=== PATIENT | female | born 1940 | race Caucasian/White ===

== ENCOUNTER 2017-12-20 14:26 | Emergency (ER) | payer OTHER, MEDICARE ==
[~2017-12-20] VITALS: Ht 162.5 cm; Wt 81.6 kg
[~2017-12-20 14:26] MED LIST: ASPIRIN ADULT L81 M2 PO; DAYPRO600 M1 PO; NKHM
[2017-12-20] MEDS ORDERED: NORCO 5-325 TA1 EACH PO (17:08)
== END 2017-12-20 18:00 | disposition home or self-care (01) ==
LOC: ED 14:26
DX: S01.511A Laceration without foreign body of lip, initial encounter (principal); S01.21XA Laceration without foreign body of nose, initial encounter; M12.811 Other specific arthropathies, not elsewhere classified, right shoulder; R51 Headache; M79.645 Pain in left finger(s); W22.8XXA Striking against or struck by other objects, initial encounter; Y93.89 Activity, other specified; Y92.89 Other specified places as the place of occurrence of the external cause; Y99.8 Other external cause status

== ENCOUNTER → 2018-07-09 | Outpatient (CLI) | payer MEDICARE ==
[~2018-07-09] MED LIST changes: +NORCO 5-325 TA1 EACH PO
== END | disposition home or self-care (01) ==
LOC: US 11:30
DX: I73.9 Peripheral vascular disease, unspecified (principal); I83.893 Varicose veins of bilateral lower extremities with other complications; L03.115 Cellulitis of right lower limb; M79.604 Pain in right leg; R60.0 Localized edema

== ENCOUNTER 2020-09-02 08:46 | Observation (INO) | payer MEDICARE ==
[2020-09-02] VITALS (14 sets, daily range): BP systolic 121–166; BP diastolic 36–90
[~2020-09-02] VITALS: Ht 162.5 cm; Wt 79.9 kg
[2020-09-03] VITALS: BP 128/59
[2020-09-03 07:02] LABS: BASO % 0.3 % (0.0-1.0); EOS # 0.2 10*3/uL (0.0-0.4); HEMATOCRIT 34.3 % (37.0-47.0); LYMPH # 1.3 10*3/uL (1.3-4.4); LYMPH % 21.3 % (27.0-41.0); MEAN CELL VOLUME 99.1 fl (81.0-99.0); MEAN CORPUSCULAR HGB 32.7 pg (27.0-31.0); MEAN CORPUSCULAR HGB CONC 32.9 g/dl (33.0-37.0); MEAN PLATELET VOLUME 10.4 fl (9.6-12.3); MONO # 0.5 10*3/uL (0.1-1.0); MONO % 8.4 % (3.0-9.0); NEUT # 4.1 10*3/uL (2.3-7.9); NEUT % 66.8 % (47.0-73.0); PLATELET COUNT AUTOMATED 175 10*3/uL (130-400); RED BLOOD COUNT 3.46 10*6/uL (4.10-5.10); RED CELL DISTRI WIDTH 12.3 % (0-14.5); WHITE BLOOD COUNT 6.1 10*3/uL (4.8-10.8)
[2020-09-03 07:15] LABS: BUN 21 mg/dl (7-24); CHLORIDE 109 mmol/L (98-107); CREATININE 0.92 mg/dL (0.55-1.02); POTASSIUM 3.8 mmol/L (3.5-5.1); SODIUM 140 mmol/L (136-145)
[2020-09-03 08:00] VITALS: BP 138/93
[2020-09-03] MEDS ORDERED: OXYBUTYNIN10 MG PO (10:04)
[2020-09-03 12:00] VITALS: BP 136/86
[2020-09-03 15:32] VITALS: BP 102/77
[2020-09-03 16:00] VITALS: BP 113/55
== END 2020-09-03 17:27 | disposition home or self-care (01) ==
LOC: ED 08:46 → 5E 11:35 → EDHOLD 11:35 → 5E 13:40
PROVIDERS: ADMIT Internal Medicine; ATTEND Internal Medicine
DX: S46.001A Unspecified injury of muscle(s) and tendon(s) of the rotator cuff of right shoulder, initial encounter (principal); S43.015A Anterior dislocation of left humerus, initial encounter; M12.811 Other specific arthropathies, not elsewhere classified, right shoulder; E66.9 Obesity, unspecified; W00.0XXA Fall on same level due to ice and snow, initial encounter; Y93.89 Activity, other specified; Y92.89 Other specified places as the place of occurrence of the external cause; Y99.8 Other external cause status; Z68.30 Body mass index [BMI] 30.0-30.9, adult

== ENCOUNTER → 2022-04-02 | Outpatient (CLI) | payer MEDICARE ==
[~2022-04-02] MED LIST changes: +OXYBUTYNIN10 MG PO
== END | disposition home or self-care (01) ==
LOC: MRI 04:31
PROVIDERS: ATTEND Internal Medicine
DX: I67.82 Cerebral ischemia (principal); F03.90 Unspecified dementia, unspecified severity, without behavioral disturbance, psychotic disturbance, mood disturbance, and anxiety

== ENCOUNTER 2024-07-21 00:19 | Emergency (ER) | payer MEDICARE ==
[~2024-07-21 00:19] MED LIST changes: +ARICEPT23MG PO; +CEFUROXIME AXE500 MG PO; +CITALOPRAM10 MG PO; +DONEPEZIL HCL10 MG PO; +KLOR-CON M1010 ME1 PO; +LASIX20 MG PO; +MELATONIN10 M4 PO; +NAMENDA-5 PO; +TRAZODONE50 MG PO; +VITAMIN D250 MCG PO
[2024-07-21] MEDS ORDERED: HYDROXYZINE PAM50 MG PO (01:45)
[2024-07-21] MEDS ORDERED: ACETAMINOPHEN 325 MG TAB PO ONE (03:20)
[2024-07-21] MEDS ORDERED: LIDOCAINE HCL/EPINEPHRINE 50 ML VIAL ONE (03:36)
[2024-07-21] MEDS ORDERED: DERMABOND 1 EA APPL T ONE (05:31)
[2024-07-21] MEDS ORDERED: Bacitracin Zinc 14 GM TUBE T ONE (05:50)
== END 2024-07-21 07:08 | disposition home or self-care (01) ==
LOC: ED 00:19
DX: S01.81XA Laceration without foreign body of other part of head, initial encounter (principal); S81.012A Laceration without foreign body, left knee, initial encounter; F03.90 Unspecified dementia, unspecified severity, without behavioral disturbance, psychotic disturbance, mood disturbance, and anxiety; F32.A Depression, unspecified; Z90.49 Acquired absence of other specified parts of digestive tract; Z98.890 Other specified postprocedural states; W01.10XA Fall on same level from slipping, tripping and stumbling with subsequent striking against unspecified object, initial encounter; Y93.89 Activity, other specified; Y92.121 Bathroom in nursing home as the place of occurrence of the external cause; Y99.8 Other external cause status

== ENCOUNTER 2025-04-26 15:46 | Inpatient (IN) | payer MEDICARE, OTHER ==
[~2025-04-26] VITALS: Ht 170.1 cm; Wt 89.9 kg
[~2025-04-26 15:46] MED LIST changes: +HYDROXYZINE PAM50 MG PO
[2025-04-26 15:49] VITALS: BP 131/80
[2025-04-26] MEDS ORDERED: Ondansetron Hydrochloride 4 MG/2 ML VIAL IV ONE ×2 (16:00→17:15)
[2025-04-26 16:37] LABS: BASO # 0.0 10*3/uL (0.0-0.1); BASO % 0.4 % (0.0-1.0); EOS # 0.2 10*3/uL (0.0-0.4); EOS % 2.1 % (1.0-4.0); MEAN CELL VOLUME 94.3 fl (81.0-99.0); MEAN CORPUSCULAR HGB 31.0 pg (27.0-31.0); MEAN PLATELET VOLUME 10.3 fl (9.6-12.3); MONO # 0.5 10*3/uL (0.1-1.0); MONO % 5.9 % (3.0-9.0); NEUT # 6.0 10*3/uL (2.3-7.9); NEUT % 65.4 % (47.0-73.0); NUCLEATED RED BLOOD CELL 0.0 % (0.0-0.0); NUCLEATED RED BLOOD CELL 0.0 10*3/uL (0.0-0.0); PLATELET COUNT AUTOMATED 274 10*3/uL (130-400); RED CELL DISTRI WIDTH 13.6 % (0-14.5)
[2025-04-26] MEDS ORDERED: HYDROmorphONE Hydrochloride 0.5 MG/0.5 ML SYRINGE IV ONE (17:15)
[2025-04-26 17:21] LABS: ACT PARTIAL THROMBO TIME 24.2 SECONDS (20.0-32.1)
[2025-04-26 17:29] LABS: BUN 22.0 mg/dl (9-23)
[2025-04-26 20:11] LABS: BILIRUBIN Negative (Negative); BLOOD Negative (Negative); CLARITY Clear (Clear); COLOR Yellow (Yellow); KETONE Negative (Negative); LEUKO ESTERASE Negative (Negative); NITRITE Negative (Negative); PH 5.5 (4.5-8.0); SPECIFIC GRAVITY 1.020 (1.001-1.030); UROBILINOGEN 0.2 E.U./dl (0.0-1.0)
[2025-04-26 20:19] LABS: BACTERIA TRACE
[2025-04-26] MEDS ORDERED: Ondansetron Hydrochloride 4 MG/2 ML VIAL IV PRN (21:15)
[2025-04-26] MEDS ORDERED: HYDROmorphONE Hydrochloride 0.5 MG/0.5 ML SYRINGE IV PRN (21:15)
[2025-04-26 21:45] VITALS: BP 132/84
[2025-04-26] MEDS ORDERED: SODIUM CHLORIDE 0.9% 1,000 ML IV SCH (22:20)
[2025-04-27] VITALS (11 sets, daily range): BP systolic 98–132; BP diastolic 41–73
[2025-04-27 06:04] LABS: BUN 24.0 mg/dl (9-23); SGPT/ALT 22.0 U/L (5-49)
[2025-04-27 06:15] LABS: BASO # 0.0 10*3/uL (0.0-0.1); BASO % 0.2 % (0.0-1.0); EOS # 0.0 10*3/uL (0.0-0.4); EOS % 0.0 % (1.0-4.0); MEAN CELL VOLUME 94.4 fl (81.0-99.0); MEAN CORPUSCULAR HGB 30.9 pg (27.0-31.0); MEAN PLATELET VOLUME 10.1 fl (9.6-12.3); MONO # 0.7 10*3/uL (0.1-1.0); MONO % 7.3 % (3.0-9.0); NEUT # 7.6 10*3/uL (2.3-7.9); NEUT % 83.0 % (47.0-73.0); NUCLEATED RED BLOOD CELL 0.0 % (0.0-0.0); NUCLEATED RED BLOOD CELL 0.0 10*3/uL (0.0-0.0); PLATELET COUNT AUTOMATED 226 10*3/uL (130-400); RED CELL DISTRI WIDTH 13.2 % (0-14.5)
[2025-04-27] MEDS ORDERED: Lactated Ringer's Solution 1,000 ML IV ONE (07:30)
[2025-04-27] MEDS ORDERED: ACETAMINOPHEN 100 ML IV ONE (07:30)
[2025-04-27] MEDS ORDERED: Ropivacaine Hydrochloride 5 MG/ML 20 ML AMP IJ ONE (08:13)
[2025-04-27] MEDS ORDERED: Bupivacaine Hydrochloride/Ep2 30 ML VIAL ONE (08:23)
[2025-04-27] MEDS ORDERED: ceFAZolin sodium/sodium chlor 20 ML IV ONE ×2 (08:33→09:00)
[2025-04-27] MEDS ORDERED: TRANEXAMIC ACID IN NACL,ISO-OS 100 ML IV ONE ×2 (08:34→09:00)
[2025-04-27] MEDS ORDERED: Cholecalciferol 2,000 UNIT TABLET (50 MCG) PO SCH (10:00)
[2025-04-27] MEDS ORDERED: HYDROmorphONE Hydrochloride 0.5 MG/0.5 ML SYRINGE IV SCH (10:30)
[2025-04-27] MEDS ORDERED: HYDROmorphONE Hydrochloride 0.5 MG/0.5 ML SYRINGE ONE (10:41)
[2025-04-27] MEDS ORDERED: PROPOFOL 200 MG/20 ML VIAL IV ONE (13:42)
[2025-04-27] MEDS ORDERED: Dexamethasone Sodium Phospha 4 MG/ML VIAL IV ONE (13:42)
[2025-04-27] MEDS ORDERED: ePHEDrine Sulfate 25 MG/5 ML SYRINGE IV ONE (13:42)
[2025-04-27] MEDS ORDERED: Midazolam Hydrochloride 2 MG/2 ML VIAL IV ONE (13:42)
[2025-04-27] MEDS ORDERED: Ondansetron Hydrochloride 4 MG/2 ML VIAL IV ONE (13:42)
[2025-04-27] MEDS ORDERED: SEVOFLURANE 250 ML BOT INH ONE (13:42)
[2025-04-27] MEDS ORDERED: ROCURONIUM BROMIDE 50 MG/5 ML SYRINGE IV ONE (13:42)
[2025-04-27] MEDS ORDERED: Lidocaine Hydrochloride 5 ML VIAL IV ONE (13:42)
[2025-04-27] MEDS ORDERED: ceFAZolin sodium 1 GM in SYRINGE INFUSION 10 ML IV SCH (14:00)
[2025-04-27] MEDS ORDERED: Acetaminophen/Oxycodone 5 MG/325 MG TABLET PO PRN (15:30)
[2025-04-27] MEDS ORDERED: NYSTATIN 15 GM BOT T SCH (22:00)
[2025-04-28 06:01] LABS: BUN 31.0 mg/dl (9-23)
[2025-04-28 06:11] LABS: BASO # 0.0 10*3/uL (0.0-0.1); BASO % 0.1 % (0.0-1.0); EOS # 0.0 10*3/uL (0.0-0.4); EOS % 0.0 % (1.0-4.0); MEAN CELL VOLUME 94.6 fl (81.0-99.0); MEAN CORPUSCULAR HGB 31.3 pg (27.0-31.0); MEAN PLATELET VOLUME 10.5 fl (9.6-12.3); MONO # 0.9 10*3/uL (0.1-1.0); MONO % 9.4 % (3.0-9.0); NEUT # 7.3 10*3/uL (2.3-7.9); NEUT % 79.1 % (47.0-73.0); NUCLEATED RED BLOOD CELL 0.0 % (0.0-0.0); NUCLEATED RED BLOOD CELL 0.0 10*3/uL (0.0-0.0); PLATELET COUNT AUTOMATED 176 10*3/uL (130-400); RED CELL DISTRI WIDTH 13.8 % (0-14.5)
[2025-04-28 08:00] VITALS: BP 91/63
[2025-04-28] MEDS ORDERED: SODIUM CHLORIDE 0.9% 1,000 ML IV SCH (10:10)
[2025-04-28] MEDS ORDERED: Menthol/Zinc Oxide 4 GM THIN T PRN (10:50)
[2025-04-28 12:00] VITALS: BP 134/55
[2025-04-28 16:00] VITALS: BP 103/66
[2025-04-28] MEDS ORDERED: CITALOPRAM20 MG PO (16:59)
[2025-04-28] MEDS ORDERED: DONEPEZIL HCL10 MG PO (17:00)
[2025-04-28] MEDS ORDERED: FUROSEMIDE20 M1 PO (17:00)
[2025-04-28] MEDS ORDERED: ESOMEPRAZOLE MA40 M1 PO (17:00)
[2025-04-28] MEDS ORDERED: MEMANTINE HCL5 MG PO (17:01)
[2025-04-28] MEDS ORDERED: ASPIRIN ENTERIC COATED 81 MG TAB PO SCH (18:00)
[2025-04-28 20:00] VITALS: BP 147/74
[2025-04-28] MEDS ORDERED: DONEPEZIL 10 MG TAB PO SCH (22:00)
[2025-04-28] MEDS ORDERED: Menthol/Zinc Oxide 4 GM THIN T SCH (22:00)
[2025-04-28] MEDS ORDERED: Memantine Hydrochloride 5 MG TAB PO SCH (22:00)
[2025-04-29] VITALS (12 sets, daily range): BP systolic 99–135; BP diastolic 42–72
[2025-04-29] MEDS ORDERED: OMEPRAZOLE 20 MG CAP PO SCH (06:00)
[2025-04-29 06:05] LABS: MEAN CELL VOLUME 96.7 fl (81.0-99.0); MEAN CORPUSCULAR HGB 30.8 pg (27.0-31.0); MEAN PLATELET VOLUME 10.2 fl (9.6-12.3); NUCLEATED RED BLOOD CELL 0.0 10*3/uL (0.0-0.0); NUCLEATED RED BLOOD CELL 0.2 % (0.0-0.0); PLATELET COUNT AUTOMATED 174 10*3/uL (130-400); RED CELL DISTRI WIDTH 14.3 % (0-14.5)
[2025-04-29 06:28] LABS: MANUAL DIFF REFLEX YES
[2025-04-29] MEDS ORDERED: SODIUM CHLORIDE 0.9% 500 ML IV ONE (06:35)
[2025-04-29 06:47] LABS: BASOPHILS 1 % (0-1); PLATELET SUFFICIENCY NORMAL (NORMAL)
[2025-04-29] MEDS ORDERED: CITALOPRAM 20 MG TAB PO SCH (10:00)
[2025-04-29 16:37] LABS: BASO # 0.0 10*3/uL (0.0-0.1); BASO % 0.5 % (0.0-1.0); EOS # 0.2 10*3/uL (0.0-0.4); EOS % 2.7 % (1.0-4.0); MEAN CELL VOLUME 95.1 fl (81.0-99.0); MEAN CORPUSCULAR HGB 30.4 pg (27.0-31.0); MEAN PLATELET VOLUME 9.6 fl (9.6-12.3); MONO # 0.7 10*3/uL (0.1-1.0); MONO % 8.2 % (3.0-9.0); NEUT # 6.1 10*3/uL (2.3-7.9); NEUT % 74.3 % (47.0-73.0); NUCLEATED RED BLOOD CELL 0.0 % (0.0-0.0); NUCLEATED RED BLOOD CELL 0.0 10*3/uL (0.0-0.0); PLATELET COUNT AUTOMATED 180 10*3/uL (130-400); RED CELL DISTRI WIDTH 15.6 % (0-14.5)
[2025-04-30] VITALS: BP 100/80
[2025-04-30 06:03] LABS: BASO # 0.0 10*3/uL (0.0-0.1); BASO % 0.5 % (0.0-1.0); EOS # 0.4 10*3/uL (0.0-0.4); EOS % 5.1 % (1.0-4.0); MEAN CELL VOLUME 94.4 fl (81.0-99.0); MEAN CORPUSCULAR HGB 30.6 pg (27.0-31.0); MEAN PLATELET VOLUME 9.8 fl (9.6-12.3); MONO # 0.7 10*3/uL (0.1-1.0); MONO % 8.7 % (3.0-9.0); NEUT # 5.0 10*3/uL (2.3-7.9); NEUT % 65.1 % (47.0-73.0); NUCLEATED RED BLOOD CELL 0.0 10*3/uL (0.0-0.0); NUCLEATED RED BLOOD CELL 0.3 % (0.0-0.0); PLATELET COUNT AUTOMATED 181 10*3/uL (130-400); RED CELL DISTRI WIDTH 15.9 % (0-14.5)
[2025-04-30 06:06] LABS: BUN 27.0 mg/dl (9-23)
[2025-04-30 08:00] VITALS: BP 128/50
[2025-04-30 12:00] VITALS: BP 125/54
[2025-04-30 16:00] VITALS: BP 149/59
[2025-04-30 20:00] VITALS: BP 138/69
[2025-05-01] VITALS: BP 141/90
[2025-05-01 06:14] LABS: BUN 16 mg/dl (9-23)
[2025-05-01 06:26] LABS: BASO # 0.0 10*3/uL (0.0-0.1); BASO % 0.4 % (0.0-1.0); EOS # 0.4 10*3/uL (0.0-0.4); EOS % 5.2 % (1.0-4.0); MEAN CELL VOLUME 95.7 fl (81.0-99.0); MEAN CORPUSCULAR HGB 30.2 pg (27.0-31.0); MEAN PLATELET VOLUME 9.7 fl (9.6-12.3); MONO # 0.6 10*3/uL (0.1-1.0); MONO % 7.9 % (3.0-9.0); NEUT # 4.7 10*3/uL (2.3-7.9); NEUT % 66.7 % (47.0-73.0); NUCLEATED RED BLOOD CELL 0.0 % (0.0-0.0); NUCLEATED RED BLOOD CELL 0.0 10*3/uL (0.0-0.0); PLATELET COUNT AUTOMATED 211 10*3/uL (130-400); RED CELL DISTRI WIDTH 15.1 % (0-14.5)
[2025-05-01 08:00] VITALS: BP 128/54
[2025-05-01 12:00] VITALS: BP 123/74
[2025-05-01] MEDS ORDERED: ASPIRIN ADULT L81 M2 PO (12:12)
[2025-05-01] MEDS ORDERED: FOAM BANDAGE 1 EACH BANDAGE T ONE (14:14)
== END 2025-05-01 15:04 | DRG 481 ==
LOC: ED 15:46 → 4E 17:58 → EDHOLD 17:58 → 4E 04-27 08:29
PROVIDERS: Emergency Medicine; Internal Medicine Nephrology; Orthopaedic Surgery; ADMIT Internal Medicine; ATTEND Internal Medicine
PROC: 0QH736Z Insertion of Intramedullary Internal Fixation Device into Left Upper Femur, Percutaneous Approach (ICD-10-PCS; principal; 2025-04-27)
PROC: 30233N1 Transfusion of Nonautologous Red Blood Cells into Peripheral Vein, Percutaneous Approach (ICD-10-PCS; 2025-04-29)
DX: S72.142A Displaced intertrochanteric fracture of left femur, initial encounter for closed fracture (principal); D62 Acute posthemorrhagic anemia; F02.83 Dementia in other diseases classified elsewhere, unspecified severity, with mood disturbance; N17.9 Acute kidney failure, unspecified; F02.84 Dementia in other diseases classified elsewhere, unspecified severity, with anxiety; S01.01XA Laceration without foreign body of scalp, initial encounter; E66.9 Obesity, unspecified; N18.9 Chronic kidney disease, unspecified; G47.00 Insomnia, unspecified; K21.9 Gastro-esophageal reflux disease without esophagitis; E55.9 Vitamin D deficiency, unspecified; G30.9 Alzheimer's disease, unspecified; Z66 Do not resuscitate; Z79.899 Other long term (current) drug therapy; Z79.01 Long term (current) use of anticoagulants; Z79.2 Long term (current) use of antibiotics; Z90.49 Acquired absence of other specified parts of digestive tract; Z98.42 Cataract extraction status, left eye; Z87.440 Personal history of urinary (tract) infections; W18.39XA Other fall on same level, initial encounter; Y93.89 Activity, other specified; Y92.89 Other specified places as the place of occurrence of the external cause; Y99.8 Other external cause status; Z68.31 Body mass index [BMI] 31.0-31.9, adult

== ENCOUNTER → 2025-05-15 | Outpatient (CLI) | payer MEDICARE, OTHER ==
[~2025-05-15] MED LIST changes: +CITALOPRAM20 MG PO; +ESOMEPRAZOLE MA40 M1 PO; +FUROSEMIDE20 M1 PO; +MEMANTINE HCL5 MG PO
== END | disposition home or self-care (01) ==
LOC: ORTHO 00:34
PROVIDERS: ATTEND Orthopaedic Surgery
DX: M25.552 Pain in left hip (principal); S43.015D Anterior dislocation of left humerus, subsequent encounter; Z98.890 Other specified postprocedural states; X58.XXXD Exposure to other specified factors, subsequent encounter

== ENCOUNTER → 2025-07-07 | Outpatient (CLI) | payer MEDICARE, OTHER | END | disposition home or self-care (01) | LOC: ORTHO 02:04 | PROVIDERS: ATTEND Orthopaedic Surgery | DX: S72.142D Displaced intertrochanteric fracture of left femur, subsequent encounter for closed fracture with routine healing (principal); M85.852 Other specified disorders of bone density and structure, left thigh; M16.12 Unilateral primary osteoarthritis, left hip; X58.XXXD Exposure to other specified factors, subsequent encounter ==